=== PATIENT | female | born 1985 | race Caucasian/White ===

== ENCOUNTER 2017-12-23 11:32 | Emergency (ER) | payer MEDICAID, OTHER ==
--- NOTE | 2017-12-23 12:02 | UC ---
Throat Pain/Nasal Julius HPI - HPI Summary HPI Summary: 31 yo female presents with productive cough, wheezing, sore throat, hoarse voice , and severe right ear pain for the last 3 days, getting progressively worse. She has felt feverish, but has not taken her temperature. Has been taking ibuprofen with mild relief of her symptoms. Does feel SOB when she gets coughing a lot. Denies chest pain, abdominal pain, n/v/d/c. She is still smoking daily. - History of Current Complaint Hx Obtained From: Patient Onset/Duration: Gradual Onset Severity: Severe Pain Intensity: 8 Pain Scale Used: 0-10 Numeric Cough: Productive <Rodriguez Diaz - Last Filed: 12/23/17 13:58> <Waldemar Marcelino - Last Filed: 12/23/17 14:23> - History of Current Complaint Stated Complaint: SORE THROAT RIGHT EAR COMPLAINT Time Seen by Provider: 12/23/17 12:01 - Allergies/Home Medications Allergies/Adverse Reactions: Allergies Allergy/AdvReac Type Severity Reaction Status Date / Time No Known Allergies Allergy Verified 12/23/17 11:51 Home Medications: Home Medications Amitriptyline TAB* [Elavil TAB*] 10 mg PO BEDTIME 12/23/17 [History Confirmed ] Ibuprofen TAB* [Advil TAB*] 400 mg PO Q6H PRN 12/23/17 [History Confirmed ] Ondansetron TAB* [Zofran 4 MG Tab*] 4 mg PO Q6H PRN 12/23/17 [History Confirmed 12/23/17] Phenylephrine HCl [Eql Nasal [place] Fast Acti] 2 udc BOTH NARES BEDTIME 12/23/17 [History Confirmed 12/23/17] Phenylephrine/Dm/Acetaminop/GG [Tylenol Cold-Flu Severe Caplet] 2 each PO BID [History Confirmed 12/23/17] Sennosides [Laxative Pills Regular St] 15 mg PO DAILY 12/23/17 [History Confirmed 12/23/17] Sertraline* [Zoloft*] 50 mg PO BEDTIME 12/23/17 [History Confirmed 12/23/17] busPIRone TAB* [Buspar TAB*] 15 mg PO BID 12/23/17 [History Confirmed 12/23/17] PMH/Surg Hx/FS Hx/Imm Hx Psychological History: Anxiety, Depression - Family History Known Family History: Positive: None - Social History Occupation: Employed Full-time Lives: With Family Alcohol Use: Occasionally Substance Use Type: None Smoking Status (MU): Light Every Day Tobacco Smoker Type: Cigarettes <Rodriguez Diaz Filed: 12/23/17 13:58> Review of Systems Constitutional: Fever Skin: Negative Eyes: Negative ENT: Sore Throat, Ear Ache Respiratory: Cough Cardiovascular: Negative Gastrointestinal: Negative Motor: Negative Neurovascular: Negative Musculoskeletal: Negative Neurological: Negative Psychological: Negative All Other Systems Reviewed And Are Negative: Yes <Rodriguez Diaz Filed: 12/23/17 13:58> Physical Exam - Summary Physical Exam Summary: GENERAL: WDWN. Moderate pain distress about right ear SKIN: No rashes, sores, lesions, or open wounds. HEENT: Head: AT/NC Eyes: Conjunctiva clear without inflammation or discharge. Ears: Hearing grossly normal. RIGHT TM with moderate erythema and bulging. No canal edema or drainage. Nose: Nasal mucosa pink and moist. NTTP maxillary and frontal sinus. Throat: Posterior oropharynx with mild erythema. No exudates or tonsillar enlargement. Uvula midline. NECK: Supple. Nontender. No lymphadenopathy. CHEST: Moderate wheezing throughout. No r/r. No accessory muscle use. Breathing comfortably, but with excessive coughing. CV: RRR. Without m/r/g. Pulses intact. Brisk cap refill. NEURO: Alert. CN II-XII grossly intact. PSYCH: Age appropriate behavior. Triage Information Reviewed: Yes Vital Signs: Vital Signs: Temp Pulse Resp BP Pulse Ox 98.8 F 110 18 118/78 100 12/23/17 12:01 12/23/17 12:01 12/23/17 12:01 12/23/17 12:01 12/23/17 12:01 <Rodriguez Diaz Filed: 12/23/17 13:58> Vital Signs: Initial Vital Signs Temp 98.8 F 12/23/17 12:01 Pulse 110 12/23/17 12:01 Resp 18 12/23/17 12:01 BP 118/78 12/23/17 12:01 Pulse Ox 100 12/23/17 12:01 <Waldemar Marcelino - Last Filed: 12/23/17 14:23> Throat Pain/Nasal Course/Dx - Course Course Of Treatment: istop Reference #: [id number] ok. 800mg ibuprofen and duoneb given in clinic. Pt feeling slightly better after nebulizer tx and lungs with less wheezing. - Differential Dx/Diagnosis Provider Diagnoses: Right otitis media. Pharyngitis. Bronchitis <Rodriguez Diaz - Last Filed: 12/23/17 13:58> Discharge - Sign-Out/Discharge Documenting (check all that apply): Discharge/Admit/Transfer - Billing Disposition and Condition Condition: STABLE Disposition: Home <Rodriguez Diaz - Last Filed: 12/23/17 13:58> - Billing Disposition and Condition Condition: STABLE Disposition: Home <Waldemar Marcelino - Last Filed: 12/23/17 14:23> - Discharge Plan Condition: Stable Disposition: HOME Prescriptions: Albuterol HFA INHALER* [Ventolin HFA Inhaler*] 1 - 2 puff INH Q6H PRN #1 mdi PRN Reason: Wheezing Amoxicillin/Clavulanate TAB* [Augmentin TAB 875*] 875 mg PO BID #20 tab HYDROcodone/ACETAMIN 5-325 MG* [Ralph 5-325 TAB*] 1 tab PO BID PRN #6 tab MDD 2 PRN Reason: Pain predniSONE TAB* [Deltasone TAB*] 50 mg PO DAILY #5 tab Patient Education Materials: Ear Infection (ED), Acute Bronchitis (ED) Referrals: Non Staff,Doctor [Primary Care Provider] - Additional Instructions: If you develop a fever, shortness of breath, chest pain, new or worsening symptoms - please call your PCP or go to the ED. Per institutional requirements, I have reviewed the chart, however, I was not consulted specifically or made aware of this patient by the above midlevel provider. I did not personally evaluate, interact with , or disposition this patient.
[2017-12-23 12:06] VITALS: BP 118/78
[2017-12-23] MEDS ORDERED: Albuterol/Ipratropium NEB.SOL* Albuterol 2.5 MG/Ipratropium 0.5 MG 3 ML INH ONE (12:20)
[2017-12-23] MEDS ORDERED: Ibuprofen TAB* 400 MG PO ONE (12:20)
== END 2017-12-23 12:51 | disposition home or self-care (01) ==
LOC: UCCORT 11:32
DX: H66.91 Otitis media, unspecified, right ear (principal); J02.9 Acute pharyngitis, unspecified; J40 Bronchitis, not specified as acute or chronic; F41.8 Other specified anxiety disorders; F17.210 Nicotine dependence, cigarettes, uncomplicated
CPT/HCPCS: 99202; A9270-GY; G0463

== ENCOUNTER 2018-09-16 13:53 | Emergency (ER) | payer OTHER ==
[2018-09-16 14:27] VITALS: BP 124/72
[2018-09-16] MEDS ORDERED: Tetan/Diph/Pertus SYR(Tdap)* 0.5 ML SYR(BOOSTRIX) use SYR IM ONE (14:47)
--- NOTE | 2018-09-16 14:47 | UC ---
Skin Complaint HPI - HPI Summary HPI Summary: 32 yo female presents with two complaints 1) 3 days ago she found a stray cat under her porch and in the process of shooing it away - the cat scratched and bit her hands. These have been healing well. Pt did not notify health department and no longer has the cat. Unsure date of last tetanus 2) For the last 2 weeks pt has had a rash to her scalp and face. She tells me that she used a new shampoo around that time and thought her rash would go away , but it seems to have gotten worse. Very itchy. She has not applied any creams or taken anything OTC. Denies fever, chills, difficulty breathing, SOB, chest pain. - History of Current Complaint Chief Complaint: UCSkin Time Seen by Provider: 09/16/18 14:47 Stated Complaint: RASH CAT BITE/SCRATCH Hx Obtained From: Patient Hx Last Menstrual Period: approx 28 days ago. Onset/Duration: Sudden Onset Onset Severity: Moderate Current Severity: Moderate Pain Intensity: 5 Pain Scale Used: 0-10 Numeric - Allergy/Home Medications Allergies/Adverse Reactions: Allergies Allergy/AdvReac Type Severity Reaction Status Date / Time No Known Allergies Allergy Verified 09/16/18 14:27 PMH/Surg Hx/FS Hx/Imm Hx Psychological History: Anxiety, Depression - Surgical History Surgical History: Yes Surgery Procedure, Year, and Place: back sx - Family History Known Family History: Positive: None - Social History Lives: With Family Alcohol Use: Rare Substance Use Type: None Smoking Status (MU): Heavy Every Day Tobacco Smoker Type: Cigarettes Amount Used/How Often: 1/2 ppd Length of Time of Smoking/Using Tobacco: 15 yrs Have You Smoked in the Last Year: Yes Review of Systems All Other Systems Reviewed And Are Negative: Yes Constitutional: Positive: Negative Skin: Positive: Rash, Other - Cat bite and scratches to hands Respiratory: Positive: Negative Cardiovascular: Positive: Negative Neurovascular: Positive: Negative Neurological: Positive: Negative Psychological: Positive: Negative Physical Exam - Summary Physical Exam Summary: GENERAL: NAD. WDWN. No pain distress. SKIN: Scalp, face, and neck with contact dermatitis. B/L hands with scattered superficial scratches and four puncture wounds. No erythema, edema, warmth, or streaking. NTTP. NECK: Supple. Nontender. No lymphadenopathy. CHEST: No accessory muscle use. Breathing comfortably and in no distress. CV: Pulses intact. Cap refill <2seconds NEURO: Alert. PSYCH: Age appropriate behavior. Triage Information Reviewed: Yes Vital Signs: Initial Vital Signs Temp 98.1 F 09/16/18 14:23 Pulse 94 09/16/18 14:23 Resp 18 09/16/18 14:23 BP 124/72 09/16/18 14:23 Pulse Ox 100 09/16/18 14:23 Vital Signs Reviewed: Yes Course/Dx - Course Course Of Treatment: tdap updated today and will start her on Augmentin for cat bite. Strongly encouraged to f/u with the health department. Regarding her rash - I suspect this is contact dermatitis and will start her with prednisone and aquaphor to use on her face. - Diagnoses Provider Diagnosis: Cat bite, Contact dermatitis Discharge - Sign-Out/Discharge Documenting (check all that apply): Patient Departure All imaging exams completed and their final reports reviewed: No Studies - Discharge Plan Condition: Stable Disposition: HOME Prescriptions: Amoxicillin/Clavulanate TAB* [Augmentin TAB 875*] 875 mg PO BID #14 tab Petrolatum,White [Aquaphor] 1 applic TOPICAL BID #1 jar predniSONE TAB* [Deltasone 20 MG TAB*] 40 mg PO DAILY #10 tab Triamcinolone 0.1% CREAM (NF) [Kenalog 0.1% Cream (NF)] 1 applic TOPICAL BID #1 tube Patient Education Materials: Animal Bite (ED), Contact Dermatitis (ED) Referrals: No Primary Care Phys,NOPCP [Primary Care Provider] - Additional Instructions: If you develop a fever, shortness of breath, chest pain, new or worsening symptoms - please call your PCP or go to the ED. 1) Do not use the Kenalog cream on your face (Use the Aquaphor instead) - Billing Disposition and Condition Condition: STABLE Disposition: Home
== END 2018-09-16 15:16 | disposition home or self-care (01) ==
LOC: UCEAST 13:53
DX: S61.432A Puncture wound without foreign body of left hand, initial encounter (principal); S61.431A Puncture wound without foreign body of right hand, initial encounter; S60.512A Abrasion of left hand, initial encounter; S60.511A Abrasion of right hand, initial encounter; W55.01XA Bitten by cat, initial encounter; Y92.9 Unspecified place or not applicable; Z23 Encounter for immunization; L25.9 Unspecified contact dermatitis, unspecified cause; F17.210 Nicotine dependence, cigarettes, uncomplicated
CPT/HCPCS: 90471; 90715; 99211; G0463

== ENCOUNTER 2018-09-28 17:00 | Emergency (ER) | payer OTHER ==
[2018-09-28] MEDS ORDERED: NS 0.9% 1000 ML** 1,000 ML IV ONE ×2 (18:27→19:37)
[2018-09-28] MEDS ORDERED: Ondansetron INJ* 2 MG/ML VIAL IV ONE (18:31)
[2018-09-28] MEDS ORDERED: Ketorolac INJ* 30 MG/ML 1 ML VIAL IV PUSH ONE (18:31)
[2018-09-28 18:48] LABS: Hematocrit 36 % (33-41); Hemoglobin 11.7 g/dL (12.0-16.0); Mean Corpuscular HGB Conc 33 g/dL (31-36); Mean Corpuscular Hemoglobin 28 pg (27-31); Mean Corpuscular Volume 86 fL (80-97); Mean Platelet Volume 7.4 fL (7.4-10.4); Platelet Count 471 10^3/uL (150-450); Red Blood Count 4.14 10^6 /uL (3.70-4.87); Red Cell Distribution Width 15 % (10.5-15); White Blood Count 15.1 10^3/uL (3.5-10.8)
[2018-09-28 19:09] LABS: ALT 22 U/L (7-52); AST 21 U/L (13-39); Albumin 4.2 g/dL (3.2-5.2); Albumin/Globulin Ratio 1.4 (1-3); Alkaline Phosphatase 89 U/L (34-104); Anion Gap 5 mmol/L (2-11); BUN/Creatinine Ratio 3.2 (8-20); Blood Urea Nitrogen 3 mg/dL (6-24); C Reactive Protein 40.81 mg/L (<8.01); CO2 Carbon Dioxide 28 mmol/L (22-32); Calcium 9.2 mg/dL (8.6-10.3); Chloride 102 mmol/L (101-111); EGFR African American 83.5 (>60); Globulin 2.9 g/dL (2-4); Glucose 111 mg/dL (70-100); Potassium 3.6 mmol/L (3.5-5.0); Sodium 135 mmol/L (135-145); Total Protein 7.1 g/dL (6.4-8.9)
[2018-09-28 19:14] LABS: HCG Pregnancy < 0.60 mIU/mL; Lymphocytes % 18 %; Monocytes % 8 %; Neutrophil % 70 %
[2018-09-28 19:15] LABS: ABS Basophils 0 10^3/ul (0-0.2); ABS Eosinophils 0.7 10^3/ul (0-0.6); ABS Lymphocytes 2.6 10^3/ul (1.0-4.8); ABS Monocytes 1.3 10^3/ul (0-0.8); ABS Neutrophils 10.6 10^3/ul (1.5-7.7); ABS Nucleated RBC 0 10^3/ul; Nucleated Red Blood Cells % 0
[2018-09-28] MEDS ORDERED: Morphine INJ* 2 MG/ML 1 ML SYRINGE (TWO MG - NEW SYRINGE VERSION) IV ONE (19:52)
[2018-09-28 20:22] LABS: Urine Appearance Clear; Urine Bilirubin Negative (Negative); Urine Blood Negative (Negative); Urine Color Colorless; Urine Glucose Negative (Negative); Urine Ketones Negative (Negative); Urine Nitrite Negative (Negative); Urine Protein Negative (Negative); Urine Specific Gravity 1.001 (1.010-1.030); Urine Urobilinogen Negative (Negative)
[2018-09-28] MEDS ORDERED: Clindamycin 600 MG/D5W BAG(*) 600 MG/50 ML BAG IV ONE (20:35)
[2018-09-28] MEDS ORDERED: cefTRIAXone(*) 1 GM in NS 0.9% 50 ML* 50 ML IVPB ONE (20:37)
[2018-09-28] MEDS ORDERED: Morphine 4 MG/ML VIAL (1 ml) 4 MG/ML VIAL IV ONE ×2 (21:00→21:24)
[2018-09-28] MEDS ORDERED: Acetaminophen TAB* 325 MG PO ONE (21:25)
--- NOTE | 2018-09-28 21:35 | ED ---
Influenza-Like Illness - HPI Summary HPI Summary: 32-year-old female presents with cough and vomiting for the past couple days. She admits to occasional fevers. She admits to headache. she denies any neck stiffness. She admits to some dysuria urgency and frequency. She states feels like she has UTI. Has history of uti. She also has flank pain. She has been drinking a lot of water. She denies any chest pain or shortness of breath. She denies any IV drug use. Has no medical conditions. She has a rash for the past month. She states she was initially treated as a contact dermatitis with antibiotic and steroid with no improvement. She then was told has scabies and took the medication without improvement. She states the rash continues to spread. Rash is itchy sometimes. Has history of MRSA. States this seems similar to her MRSA rash. - History of Current Complaint Chief Complaint: EDFluSymptoms Time Seen by Provider: 09/28/18 18:03 - Allergy/Home Medications Allergies/Adverse Reactions: Allergies Allergy/AdvReac Type Severity Reaction Status Date / Time No Known Allergies Allergy Verified 09/28/18 17:13 PMH/Surg Hx/FS Hx/Imm Hx Endocrine/Hematology History: Denies: Hx Anticoagulant Therapy Respiratory History: Denies: Hx Asthma - Surgical History Surgery Procedure, Year, and Place: back sx Infectious Disease History: No Infectious Disease History: Denies: Traveled Outside the [place] in Last 30 Days - Family History Known Family History: Positive: None, Non-Contributory - Social History Alcohol Use: Rare Substance Use Type: Reports: None Smoking Status (MU): Heavy Every Day Tobacco Smoker Type: Cigarettes Amount Used/How Often: 1/2 ppd Length of Time of Smoking/Using Tobacco: 15 yrs Have You Smoked in the Last Year: Yes Review of Systems Positive: Fever, Chills Negative: Chest Pain Positive: Cough. Negative: Shortness Of Breath Positive: Vomiting, Nausea Positive: dysuria, flank pain, urgency All Other Systems Reviewed And Are Negative: Yes Physical Exam Triage Information Reviewed: Yes Vital Signs On Initial Exam: Initial Vitals Temp Pulse Resp BP Pulse Ox 98.6 F 93 22 152/98 100 09/28/18 17:10 09/28/18 17:10 09/28/18 17:10 09/28/18 17:10 09/28/18 17:10 Vital Signs Reviewed: Yes Appearance: Positive: Ill-Appearing Skin: Positive: Warm, Dry, Other - area of ulceration across body with some scabs present, no erythema surrouding them Head/Face: Positive: Normal Head/Face Inspection Eyes: Positive: Normal, EOMI, MIGUELITO, Conjunctiva Clear ENT: Positive: Normal ENT inspection, Pharynx normal, TMs normal Neck: Positive: Supple, Nontender, No Lymphadenopathy. Negative: Nuchal Rigidity Respiratory/Lung Sounds: Positive: Clear to Auscultation, Breath Sounds Present Cardiovascular: Positive: Normal, RRR Abdomen Description: Positive: Nontender, Soft, CVA Tenderness (R), CVA Tenderness (L) Bowel Sounds: Positive: Present Musculoskeletal: Positive: Normal Neurological: Positive: Normal Psychiatric: Positive: Normal Diagnostics - Vital Signs Vital Signs Temp Pulse Resp BP Pulse Ox 09/28/18 20:37 97 20 114/71 100 09/28/18 20:24 22 09/28/18 20:01 115 100 09/28/18 20:00 116 140/94 100 09/28/18 19:15 89 112/68 100 09/28/18 19:07 104 109/71 69 09/28/18 19:00 104 97 09/28/18 18:38 99 100 09/28/18 18:37 103 124/86 92 09/28/18 17:10 98.6 F 93 22 152/98 100 - Laboratory Lab Results: Lab Results 09/28/18 09/28/18 09/28/18 Range/Units 18:39 18:39 18:39 WBC 15.1 H (3.5-10.8) 10^3/uL RBC 4.14 (3.70-4.87) 10^6 /uL Hgb 11.7 L (12.0-16.0) g/dL Hct 36 (33-41) % MCV 86 (80-97) fL MCH 28 (27-31) pg MCHC 33 (31-36) g/dL RDW 15 (10.5-15) % Plt Count 471 H (150-450) 10^3/uL MPV 7.4 (7.4-10.4) fL Neut % (Auto) Not Reportable Lymph % (Auto) Not Reportable Garrard % (Auto) Not Reportable Eos % (Auto) Not Reportable Baso % (Auto) Not Reportable Absolute Neuts (auto) 10.6 H (1.5-7.7) 10^3/ul Absolute Lymphs (auto) 2.6 (1.0-4.8) 10^3/ul Absolute Monos (auto) 1.3 H (0-0.8) 10^3/ul Absolute Eos (auto) 0.7 H (0-0.6) 10^3/ul Absolute Basos (auto) 0 (0-0.2) 10^3/ul Absolute Nucleated RBC 0 10^3/ul Neutrophils % 70 % Lymphocytes % 18 % Monocytes % 8 % Eosinophils % 4 % Nucleated RBC % 0 Normal RBC Morphology Normal (Normal) Hem Pathologist Commnt Pending Sodium 135 (135-145) mmol/L Potassium 3.6 (3.5-5.0) mmol/L Chloride 102 (101-111) mmol/L Carbon Dioxide 28 (22-32) mmol/L Anion Gap 5 (2-11) mmol/L BUN 3 L (6-24) mg/dL Creatinine 0.94 (0.51-0.95) mg/dL Est GFR ( Amer) 83.5 (>60) Est GFR (Non-Af Amer) 69.0 (>60) BUN/Creatinine Ratio 3.2 L (8-20) Glucose 111 H (70-100) mg/dL Lactic Acid 1.6 (0.5-2.0) mmol/L Calcium 9.2 (8.6-10.3) mg/dL Total Bilirubin 0.30 (0.2-1.0) mg/dL AST 21 (13-39) U/L ALT 22 (7-52) U/L Alkaline Phosphatase 89 (34-104) U/L C-Reactive Protein 40.81 H (<8.01) mg/L Total Protein 7.1 (6.4-8.9) g/dL Albumin 4.2 (3.2-5.2) g/dL Globulin 2.9 (2-4) g/dL Albumin/Globulin Ratio 1.4 (1-3) Lipase < 10 L (11.0-82.0) U/L Beta HCG, Quant < 0.60 mIU/mL Urine Color Urine Appearance Urine pH (5-9) Ur Specific Pratt (1.010-1.030) Urine Protein (Negative) Urine Ketones (Negative) Urine Blood (Negative) Urine Nitrate (Negative) Urine Bilirubin (Negative) Urine Urobilinogen (Negative) Ur Leukocyte Esterase (Negative) Urine Glucose (Negative) Monoscreen Negative (Negative) 09/28/18 Range/Units 20:10 WBC (3.5-10.8) 10^3/uL RBC (3.70-4.87) 10^6 /uL Hgb (12.0-16.0) g/dL Hct (33-41) % MCV (80-97) fL MCH (27-31) pg MCHC (31-36) g/dL RDW (10.5-15) % Plt Count (150-450) 10^3/uL MPV (7.4-10.4) fL Neut % (Auto) Lymph % (Auto) Garrard % (Auto) Eos % (Auto) Baso % (Auto) Absolute Neuts (auto) (1.5-7.7) 10^3/ul Absolute Lymphs (auto) (1.0-4.8) 10^3/ul Absolute Monos (auto) (0-0.8) 10^3/ul Absolute Eos (auto) (0-0.6) 10^3/ul Absolute Basos (auto) (0-0.2) 10^3/ul Absolute Nucleated RBC 10^3/ul Neutrophils % % Lymphocytes % % Monocytes % % Eosinophils % % Nucleated RBC % Normal RBC Morphology (Normal) Hem Pathologist Commnt Sodium (135-145) mmol/L Potassium (3.5-5.0) mmol/L Chloride (101-111) mmol/L Carbon Dioxide (22-32) mmol/L Anion Gap (2-11) mmol/L BUN (6-24) mg/dL Creatinine (0.51-0.95) mg/dL Est GFR ( Amer) (>60) Est GFR (Non-Af Amer) (>60) BUN/Creatinine Ratio (8-20) Glucose (70-100) mg/dL Lactic Acid (0.5-2.0) mmol/L Calcium (8.6-10.3) mg/dL Total Bilirubin (0.2-1.0) mg/dL AST (13-39) U/L ALT (7-52) U/L Alkaline Phosphatase (34-104) U/L C-Reactive Protein (<8.01) mg/L Total Protein (6.4-8.9) g/dL Albumin (3.2-5.2) g/dL Globulin (2-4) g/dL Albumin/Globulin Ratio (1-3) Lipase (11.0-82.0) U/L Beta HCG, Quant mIU/mL Urine Color Colorless Urine Appearance Clear Urine pH 8.0 (5-9) Ur Specific Pratt 1.001 L (1.010-1.030) Urine Protein Negative (Negative) Urine Ketones Negative (Negative) Urine Blood Negative (Negative) Urine Nitrate Negative (Negative) Urine Bilirubin Negative (Negative) Urine Urobilinogen Negative (Negative) Ur Leukocyte Esterase Negative (Negative) Urine Glucose Negative (Negative) Monoscreen (Negative) Result Diagrams: 09/28/18 18:39 09/28/18 18:39 Lab Statement: Any lab studies that have been ordered have been reviewed, and results considered in the medical decision making process. - Radiology chest Radiology Interpretation Completed By: ED Physician Summary of Radiographic Findings: no pneumonia - Ultrasound No standard instances Ultrasound Interpretation Completed By: Radiologist Summary of Ultrasound Findings: IMPRESSION: No stones or obstructive uropathy. Mild fullness of the collecting systems bilaterally could be from reflux. Flu Symptom Course/Dx - Course Course Of Treatment: 32-year-old female presents with cough and vomiting for the past couple days. She admits to occasional fevers. She admits to headache. she denies any neck stiffness. She admits to some dysuria urgency and frequency. She states feels like she has UTI. Has history of uti. She also has flank pain. She has been drinking a lot of water. She denies any chest pain or shortness of breath. She denies any IV drug use. Has no medical conditions. She has a rash for the past month. She states she was initially treated as a contact dermatitis with antibiotic and steroid with no improvement. She then was told has scabies and took the medication without improvement. She states the rash continues to spread. Rash is itchy sometimes. Has history of MRSA. States this seems similar to her MRSA rash. On exam ulcerative type lesions across body. No evidence of cellulitis surrounding these wounds. Lungs clear to auscultation. Abdomen soft nontender. Tenderness over the flanks. Renal ultrasound shows possible reflux. Urine shows no infection. Patient did urinate in ED and had extreme pain though so give dose of Rocephin in case does have a UTI although urine is not showing such. white blood cell count elevated. CRP elevated. Lactic normal. Gave fluids and feeling better. Given a dose of clindamycin to cover for potential MRSA infection. Discussed will discharge on Bactrim as will also cover for UTI and for the potential MRSA infection. Told if symptoms are not improving or getting worse to return to ED. We'll have follow-up care connections. Patient understands agrees with plan. - Diagnoses Differential Diagnosis/HQI/PQRI: Positive: Influenza, Pneumonia, Upper Respiratory Infection Provider Diagnoses: Cough, Urinary frequency, Rash Discharge - Sign-Out/Discharge Documenting (check all that apply): Patient Departure Patient Received Moderate/Deep Sedation with Procedure: No - Discharge Plan Condition: Good Disposition: HOME Prescriptions: guaiFENesin/CODIEN 100MG-10MG* [Robitussin AC 100Mg-10Mg*] 5 ml PO Q6H PRN #100 udc MDD 20ml PRN Reason: Cough Ondansetron ODT TAB* [Zofran 4 MG Odt TAB*] 4 mg PO Q6H PRN #16 tab.odt PRN Reason: Nausea Phenazopyridine 200 mg (NF) [Pyridium 200 MG tab *] 200 mg PO TID PRN #5 tab PRN Reason: Pain Sulfamethox/Trimethoprim DS* [Bactrim DS 800/160 TAB*] 1 tab PO BID #20 tab Referrals: [facility] [Outside] Red Acuna MD [Medical Doctor] - Additional Instructions: take bactrim twice a day for 10 days Take pyridium three times a day with food for 2 days, first dose given in ED Drink plenty of fluids take zofran every 6 hours for nausea take 5ml robitussin every 6 hours as needed for cough Take tyenlol or ibuprofen every 6 hours as needed for fever or pain Follow up with care connection within 5 days follow up with dermatology Return to ED if develop any new or worsening symptoms - Billing Disposition and Condition Condition: GOOD Disposition: Home
[2018-09-28 21:58] LABS: Influenza A Molecular NEGATIVE (Negative); Influenza B Molecular NEGATIVE (Negative)
[2018-09-28] MEDS ORDERED: Phenazopyridine TAB* 100 MG PO ONE (22:13)
[2018-09-28 23:08] VITALS: BP 100/62
[2018-10-01 13:57] LABS: EBV Capsid Ag IgG Ab Positive (Negative); EBV Capsid Ag IgM Ab Negative (Negative); Epstein-Barr Nuclear Antigen Positive (Negative)
== END 2018-09-28 23:07 | disposition home or self-care (01) ==
LOC: ED 17:00
DX: R05 Cough (principal); R35.0 Frequency of micturition; R21 Rash and other nonspecific skin eruption; R50.9 Fever, unspecified; R51 Headache; R11.2 Nausea with vomiting, unspecified; R30.0 Dysuria; Z87.440 Personal history of urinary (tract) infections; Z86.14 Personal history of Methicillin resistant Staphylococcus aureus infection; F17.210 Nicotine dependence, cigarettes, uncomplicated
CPT/HCPCS: 36415; 71046; 76775; 80053; 81003; 83605; 83690; 84702; 85025; 85060; 86140; 86308; 86664; 86665; 87040; 87086; 96361; 96365; 96375; 96376; 99284; A9270-GY; J0696; J1885; J2270; J2405

== ENCOUNTER 2019-01-27 15:43 | Emergency (ER) | payer OTHER ==
--- NOTE | 2019-01-27 15:47 | UC ---
Hand/Wrist HPI - History Of Current Complaint Stated Complaint: WRIST COMPLAINT Time Seen by Provider: 01/27/19 15:47 Hx Last Menstrual Period: one month ago, states not - Allergies/Home Medications Allergies/Adverse Reactions: Allergies Allergy/AdvReac Type Severity Reaction Status Date / Time No Known Allergies Allergy Verified 09/28/18 17:13 PMH/Surg Hx/FS Hx/Imm Hx Psychological History: Anxiety, Depression, Bipolar Disorder Other History Of: Negative For: Anticoagulant Therapy - Surgical History Surgical History: Yes Surgery Procedure, Year, and Place: multiple laminectomies, three C-sections, appendectomy - Family History Known Family History: Positive: None, Unknown - is unsure about direct parents; she has no communication with them,, Renal Disease - grandfather was on dialysis , Non-Contributory - Social History Alcohol Use: Rare Substance Use Type: None Substance Use Comment - Amount & Last Used: denies Smoking Status (MU): Heavy Every Day Tobacco Smoker Type: Cigarettes Amount Used/How Often: 1/2 ppd Length of Time of Smoking/Using Tobacco: 15 yrs Have You Smoked in the Last Year: Yes Discharge - Discharge Plan Referrals: No Primary Care Phys,NOPCP [Primary Care Provider] -
[2019-01-27 16:19] VITALS: BP 150/73
--- NOTE | 2019-01-27 16:23 | UC ---
UC General HPI - HPI Summary HPI Summary: 33-year-old woman comes in with a chief complaint of right wrist weakness and numbness of the distal right arm. Reports this started about a week ago. Patient reports that in [place] on November 25, 2018 she had an MRI of her cervical spine and low back. She ended up with low back surgery on that date due to her right leg giving out on her. She's been having some intermittent numbness in the hands and was diagnosed with cervical radiculopathy. Patient reports about one week ago she developed some weakness of the right wrist where she cannot extend the wrist. She thought it would improve and it has not. She reports numbness in the dorsum of the right hand but also numbness into the right forearm. Is difficult for her to pronate. She prefers to use that she does have some overall weakness in the right arm compared to the left arm. - History of Current Complaint Stated Complaint: WRIST COMPLAINT Time Seen by Provider: 01/27/19 15:47 Hx Last Menstrual Period: one month ago, states not - Allergy/Home Medications Allergies/Adverse Reactions: Allergies Allergy/AdvReac Type Severity Reaction Status Date / Time No Known Allergies Allergy Verified 01/27/19 16:19 Home Medications: Home Medications ALPRAZolam TAB* [Xanax TAB*] 0.25 mg PO DAILY 01/27/19 [History Confirmed ] PMH/Surg Hx/FS Hx/Imm Hx Previously Healthy: Yes Other History Of: Negative For: Anticoagulant Therapy - Surgical History Surgical History: Yes Surgery Procedure, Year, and Place: multiple laminectomies, three C-sections, appendectomy - Family History Known Family History: Positive: None, Unknown - is unsure about direct parents; she has no communication with them,, Renal Disease - grandfather was on dialysis , Non-Contributory - Social History Alcohol Use: Rare Substance Use Type: None Substance Use Comment - Amount & Last Used: denies Smoking Status (MU): Heavy Every Day Tobacco Smoker Type: Cigarettes Amount Used/How Often: 1/2 ppd Length of Time of Smoking/Using Tobacco: 15 yrs Have You Smoked in the Last Year: Yes Review of Systems All Other Systems Reviewed And Are Negative: Yes Constitutional: Positive: Negative Skin: Positive: Negative Eyes: Positive: Negative ENT: Positive: Negative Respiratory: Positive: Negative Cardiovascular: Positive: Negative Gastrointestinal: Positive: Negative Genitourinary: Positive: Negative Motor: Positive: Other - SEE HPI Neurovascular: Positive: Other - SEE HPI Musculoskeletal: Positive: Other: - SEE HPI Neurological: Positive: Other - SEE HPI Psychological: Positive: Negative Is Patient Immunocompromised?: No Physical Exam Triage Information Reviewed: Yes Appearance: Well-Appearing, No Pain Distress, Well-Nourished Vital Signs Reviewed: Yes Eye Exam: Normal Eyes: Positive: Conjunctiva Clear Neck: Positive: Supple Respiratory: Positive: Lungs clear, Normal breath sounds, No respiratory distress Cardiovascular: Positive: RRR Musculoskeletal: Positive: Other: - Patient is unable to extend her right wrist. She is able to flex her right wrist. Patient is able to do pronation and supination although she reports it feels weak. She reports numbness in the right forearm. With elbow extension strength is 5 out of 5 bilaterally however the patient feels that the right elbow extension is not as strong as the left. Shoulders have full range of motion. Normal radial pulses normal capillary refill. Neurological: Positive: Alert Psychological: Positive: Age Appropriate Behavior Skin: Negative: Rashes Course/Dx - Course Course Of Treatment: I discussed the patient and her symptoms with her neck and back surgeon Dr Massey at [place]. He recommended a cock-up splint and for her to be seen in his office tomorrow. I discussed this with the patient she can call his office first thing in the morning for follow-up tomorrow. - Diagnoses Provider Diagnosis: Right wrist drop Discharge - Sign-Out/Discharge Documenting (check all that apply): Patient Departure All imaging exams completed and their final reports reviewed: No Studies - Discharge Plan Condition: Stable Disposition: HOME Patient Education Materials: Radial Nerve Palsy (ED) Referrals: Ben Massey MD [Medical Doctor] - Additional Instructions: FOLLOW UP WITH YOUR NECK AND BACK SURGEON, DR MASSEY, TOMORROW. CALL HIS OFFICE IN THE MORNING, FOR FOLLOW UP. GET RECHECKED SOONER IF YOUR CONDITION WORSENS OR ANY QUESTIONS OR CONCERNS. - Billing Disposition and Condition Condition: STABLE Disposition: Home
== END 2019-01-27 17:03 | disposition home or self-care (01) ==
LOC: UCEAST 15:43
DX: M21.331 Wrist drop, right wrist (principal); F17.210 Nicotine dependence, cigarettes, uncomplicated
CPT/HCPCS: 99213; G0463

== ENCOUNTER 2019-02-10 14:46 | Emergency (ER) | payer OTHER ==
[2019-02-10 15:06] VITALS: BP 118/80
[2019-02-10] MEDS ORDERED: hydrOXYzine HCL TAB* 25 MG PO ONE (15:15)
--- NOTE | 2019-02-10 15:19 | UC ---
Skin Complaint HPI - HPI Summary HPI Summary: 33 yo female with hx post traumatic stress disorder, anxiety presents with pruritic bug bites to back and neck as well as a few on her extr states she has always picked at bites bites present x days hx of MRSA - History of Current Complaint Chief Complaint: UCSkin Time Seen by Provider: 02/10/19 14:59 Stated Complaint: BUG BITES Hx Obtained From: Patient Hx Last Menstrual Period: 02/08/19 Onset/Duration: Gradual Onset, Lasting Days Timing: Constant Onset Severity: Mild Current Severity: Moderate Pain Intensity: 3 Pain Scale Used: 0-10 Numeric Location: Other - see HPI Character: Pruritus, Raised Aggravating Factor(s): Touch Alleviating Factor(s): Nothing Associated Signs & Symptoms: Negative: Nausea, Vomiting, Numbness, Thirst, Diaphoresis, Weakness, Pallor, Shivering, Difficulty Breathing, Fever, Chills, Cough, Wheezing, Chest Pain, Hoarseness, Throat Tightening, Rash, Abdominal Pain , Lightheadedness, Syncope, Drainage, Bruising, Tenderness, Red Streaks, Joint Swelling - Allergy/Home Medications Allergies/Adverse Reactions: Allergies Allergy/AdvReac Type Severity Reaction Status Date / Time No Known Allergies Allergy Verified 02/10/19 15:06 Home Medications: Home Medications Loratadine 10 mg PO DAILY 02/10/19 [History Confirmed 02/10/19] busPIRone TAB* [Buspar TAB*] 10 mg PO DAILY 02/10/19 [History Confirmed 02/10/19 ] PMH/Surg Hx/FS Hx/Imm Hx Previously Healthy: Yes Psychological History: Anxiety, Post Traumatic Stress Disorder Other History Of: Negative For: Anticoagulant Therapy - Surgical History Surgical History: Yes Surgery Procedure, Year, and Place: multiple laminectomies, three C-sections, appendectomy - Family History Known Family History: Positive: None, Unknown - is unsure about direct parents; she has no communication with them,, Renal Disease - grandfather was on dialysis , Non-Contributory - Social History Alcohol Use: Rare Substance Use Type: None Substance Use Comment - Amount & Last Used: denies Smoking Status (MU): Heavy Every Day Tobacco Smoker Type: Cigarettes Amount Used/How Often: 1/2 ppd Length of Time of Smoking/Using Tobacco: 15 yrs Have You Smoked in the Last Year: Yes Review of Systems All Other Systems Reviewed And Are Negative: Yes Constitutional: Positive: Negative Skin: Positive: Other - insect bites Eyes: Positive: Negative ENT: Positive: Negative Respiratory: Positive: Negative Cardiovascular: Positive: Negative Gastrointestinal: Positive: Negative Genitourinary: Positive: Negative Motor: Positive: Negative Neurovascular: Positive: Negative Musculoskeletal: Positive: Negative Neurological: Positive: Negative Psychological: Positive: Anxious - chroniclly Physical Exam Triage Information Reviewed: Yes Appearance: Well-Appearing, No Pain Distress, Well-Nourished Vital Signs: Initial Vital Signs Temp 98.1 F 02/10/19 14:58 Pulse 84 02/10/19 14:58 Resp 16 02/10/19 14:58 BP 118/80 02/10/19 14:58 Pulse Ox 99 02/10/19 14:58 Vital Signs Reviewed: Yes Eyes: Positive: Conjunctiva Clear ENT: Positive: Hearing grossly normal, Uvula midline. Negative: Nasal congestion, Nasal drainage, Tonsillar exudate, Trismus, Hoarse voice Dental Exam: Normal Neck: Positive: Supple, Nontender, No Lymphadenopathy Respiratory: Positive: Lungs clear, Normal breath sounds, No respiratory distress, No accessory muscle use Cardiovascular: Positive: RRR, No Murmur Bowel Sounds: Positive: Present Musculoskeletal: Positive: ROM Intact, No Edema Neurological: Positive: Alert Psychological Exam: Normal Skin Exam: Other - multiple excoriated bites..none appera infected. Course/Dx - Diagnoses Provider Diagnosis: Insect bites Discharge - Sign-Out/Discharge Documenting (check all that apply): Patient Departure All imaging exams completed and their final reports reviewed: No Studies - Discharge Plan Condition: Stable Disposition: HOME Prescriptions: hydrOXYzine HCL TAB* [Atarax TAB*] 25 - 50 mg PO QID PRN #20 tab PRN Reason: Itching Mupirocin 2% OINT* [Bactroban 2 % Oint*] 1 applic TOPICAL TID #1 tube Patient Education Materials: Insect Bite or Sting (ED) Referrals: [facility] [Outside] - As Soon As Possible Additional Instructions: recheck for new or worsening symptoms - Billing Disposition and Condition Condition: STABLE Disposition: Home
== END 2019-02-10 15:29 | disposition home or self-care (01) ==
LOC: UCEAST 14:46
DX: S10.96XA Insect bite of unspecified part of neck, initial encounter (principal); S20.469A Insect bite (nonvenomous) of unspecified back wall of thorax, initial encounter; W57.XXXA Bitten or stung by nonvenomous insect and other nonvenomous arthropods, initial encounter; Y92.9 Unspecified place or not applicable; F41.9 Anxiety disorder, unspecified; Z86.14 Personal history of Methicillin resistant Staphylococcus aureus infection; F17.210 Nicotine dependence, cigarettes, uncomplicated
CPT/HCPCS: 99212; A9270-GY; G0463

== ENCOUNTER 2019-05-21 15:14 | Inpatient (IN) | payer OTHER ==
[2019-05-21 16:07] LABS: Urine Appearance Cloudy; Urine Bacteria 1+ (Absent); Urine Bilirubin Negative (Negative); Urine Blood Negative (Negative); Urine Color Amber; Urine Glucose Negative (Negative); Urine Ketones Negative (Negative); Urine Nitrite Positive (Negative); Urine Protein Negative (Negative); Urine Red Blood Cell 2+(6-10/hpf) (Absent); Urine Specific Gravity 1.016 (1.010-1.030); Urine Squamous Epithelial Cell Present (Absent); Urine Urobilinogen Negative (Negative); Urine White Blood Cell 2+(11-20/hpf) (Absent)
[2019-05-21] MEDS ORDERED: Ondansetron INJ* 2 MG/ML VIAL IV ONE (18:37)
[2019-05-21] MEDS ORDERED: Lactated Ringers 1000 ML Bag* 1,000 ML IV ONE (18:37)
[2019-05-21] MEDS ORDERED: Famotidine IV* 10 MG/ML 2 ML (20 mg) IV SLOW PU ONE (18:37)
--- NOTE | 2019-05-21 18:48 | ED ---
Abdominal Pain/Female - HPI Summary HPI Summary: 33 year old F presenting to [facility] accompanied by male hospitality services manager complains of worsening abdominal pain rated 8/10 in severity x3 weeks, intermittent nausea/ vomiting x1 year, dysuria and back pain x1 month, and fever for several days. No diarrhea. Patient denies chills, erythema of eyes, sore throat, chest pain, shortness of breath, cough, hematuria, myalgia, edema, rash, or dizziness. Symptoms aggravated by nothing. Symptoms alleviated by nothing. Patient recently had ultrasound done which showed that her gallbladder was "sluggish" and was admitted to [facility] in [place], d/c 1 week ago. States she called her doctors at [place] today and was referred to ED. Advised by her doctors to have HIDA scan before potential cholecystectomy. States she recently stopped taking many of her medications. Hx kidney stones, hx kidney disease, hx kidney reflex. - History of Current Complaint Chief Complaint: EDAbdPain Stated Complaint: ABD PAIN / FEVER / NAUSEA PER PT Time Seen by Provider: 05/21/19 18:39 Hx Obtained From: Patient Onset/Duration: Lasting Weeks, Still Present Timing: Intermittent Episode Lasting Severity Currently: Severe Pain Intensity: 8 Pain Scale Used: 0-10 Numeric Aggravating Factor(s): Nothing Alleviating Factor(s): Nothing Associated Signs and Symptoms: Positive: Negative - chills, erythema of eyes, sore throat, chest pain, shortness of breath, cough, diarrhea, hematuria, myalgia, edema, rash, or dizziness Allergies/Adverse Reactions: Allergies Allergy/AdvReac Type Severity Reaction Status Date / Time No Known Allergies Allergy Verified 05/21/19 15:40 Home Medications: Home Medications Amitriptyline TAB* [Elavil TAB*] 25 mg PO QPM 05/21/19 [History Confirmed ] Famotidine TAB* [Pepcid 20 MG TAB*] 20 mg PO QPM PRN 05/21/19 [History Confirmed 05/21/19] Fluticasone NASAL SPRAY 50MCG* [Flonase NASAL SPRAY 50MCG*] 2 spray BOTH NARES DAILY 05/21/19 [History Confirmed 05/21/19] Gabapentin TAB(NF) [Neurontin 600 mg TAB(NF)] 600 mg PO TID 05/21/19 [History Confirmed 05/21/19] Magnesium Hydroxide LIQ* [Milk of Magnesia LIQ*] 30 ml PO Q6H PRN 05/21/19 [ History Confirmed 05/21/19] tiZANidine TAB* [Zanaflex TAB*] 2 mg PO Q8HR 05/21/19 [History Confirmed ] PMH/Surg Hx/FS Hx/Imm Hx Endocrine/Hematology History: Denies: Hx Anticoagulant Therapy Respiratory History: Denies: Hx Asthma History: Reports: Hx Acute Renal Failure - during first , Hx Kidney Stones, Hx Renal Disease, Other Problems/Disorders - urinary reflux since age 7, has not seen urology for a few years - Surgical History Surgery Procedure, Year, and Place: multiple laminectomies, three C-sections, appendectomy Infectious Disease History: Yes Infectious Disease History: Reports: Hx of Known/Suspected MRSA Denies: Traveled Outside the [place] in Last 30 Days - Family History Known Family History: Positive: Renal Disease - grandfather was on dialysis - Social History Alcohol Use: Rare Hx Substance Use: No Substance Use Type: Reports: None Substance Use Comment - Amount & Last Used: denies Hx Tobacco Use: Yes Smoking Status (MU): Heavy Every Day Tobacco Smoker Type: Cigarettes Amount Used/How Often: 1/2 ppd Length of Time of Smoking/Using Tobacco: 15 yrs Have You Smoked in the Last Year: Yes Review of Systems Positive: Fever. Negative: Chills Negative: Erythema Negative: Sore Throat Negative: Chest Pain Negative: Shortness Of Breath, Cough Positive: Abdominal Pain, Vomiting, Nausea. Negative: Diarrhea Positive: dysuria, discharge - back pain. Negative: hematuria Positive: Other. Negative: Myalgia, Edema Negative: Rash Neurological: Negative - Dizziness All Other Systems Reviewed And Are Negative: Yes Physical Exam - Summary Physical Exam Summary: Constitutional: Well-developed, Well-nourished, Alert. (-) Distressed Skin: Warm, Dry HENT: Normocephalic; Atraumatic Eyes: Conjunctiva normal Neck: Musculoskeletal ROM normal neck. (-) JVD, (-) Stridor, (-) Tracheal deviation Cardio: Rhythm regular, rate normal, Heart sounds normal; Intact distal pulses; The pedal pulses are 2+ and symmetric. Radial pulses are 2+ and symmetric. (-) Murmur Pulmonary/Chest wall: Effort normal. (-) Respiratory distress, (-) Wheezes, (-) Rales Abd: Soft, epigastric, RUQ, right CVA tenderness, (-) Distension, (-) Guarding, (-) Rebound Musculoskeletal: (-) Edema Lymph: (-) Cervical adenopathy Neuro: Alert, Oriented x3 Psych: Mood and affect Normal Triage Information Reviewed: Yes Vital Signs On Initial Exam: Initial Vitals Temp Pulse Resp BP Pulse Ox 98.4 F 103 20 121/78 98 05/21/19 15:37 05/21/19 15:37 05/21/19 15:37 05/21/19 15:37 05/21/19 15:37 Vital Signs Reviewed: Yes Procedures - Procedure Summary Procedure Summary: Attempted ultrasound guided IV of the left antecubital space. Compressible non- pulsifiable vessel was identified, however cannula did not thread. - Sedation Patient Received Moderate/Deep Sedation with Procedure: No Diagnostics - Vital Signs Vital Signs Temp Pulse Resp BP Pulse Ox 05/21/19 16:59 98.8 F 103 18 108/68 97 05/21/19 15:37 98.4 F 103 20 121/78 98 - Laboratory Lab Results: Lab Results 05/21/19 Range/Units 15:52 Urine Color Shani Urine Appearance Cloudy Urine pH 7.0 (5-9) Ur Specific [place] 1.016 (1.010-1.030) Urine Protein Negative (Negative) Urine Ketones Negative (Negative) Urine Blood Negative (Negative) Urine Nitrate Positive A (Negative) Urine Bilirubin Negative (Negative) Urine Urobilinogen Negative (Negative) Ur Leukocyte Esterase 1+ A (Negative) Urine WBC (Auto) 2+(11-20/hpf) A (Absent) Urine RBC (Auto) 2+(6-10/hpf) A (Absent) Ur Squamous Epith Cells Present A (Absent) Urine Bacteria 1+ A (Absent) Urine Glucose Negative (Negative) Result Diagrams: 05/21/19 19:52 05/21/19 19:52 Lab Statement: Any lab studies that have been ordered have been reviewed, and results considered in the medical decision making process. - CT Abd/Pel CT Interpretation Completed By: Radiologist Summary of CT Findings: 1. Possible right pyelonephritis. No additional findings to correlate with patient's symptomatology. 2. Hepatomegaly. ED physician has reviewed this report. - Ultrasound Gallbladder Ultrasound Interpretation Completed By: Radiologist Summary of Ultrasound Findings: Mild hydronephrosis with no right ureteral jet suggesting a obstructing ureteral calculus which can be confirmed with a CT KUB. ED physician has reviewed this report. Re-Evaluation - Re-Evaluation First Eval Re-Evaluation Time: 21:15 Change: Unchanged Comment: per nurses, 4 nurses have attempted IV access without success Abdominal Pain Fem Course/Dx - Course Course Of Treatment: 33 year old F complains of worsening abdominal pain x3 weeks, intermittent nausea/vomiting x1 year, dysuria and back pain x1 month, and fever for several days. Recently d/c from [facility] in [place] 1 week ago. States she was advised to have HIDA scan before potential cholecystectomy. Physical exam findings: epigastric, RUQ, right CVA tenderness. Bloodwork results with no significant abnormalities except for WBC 19.8, platelet count 512, absolute neuts 16.4, absolute monos 1.7, sodium 134, chloride 98, creatinine 1.03, glucose 108, alkaline phosphatase 133, lipase <10. Urinalysis results with no significant abnormalities except for nitrate, leukocyte esterase 1+, WBC 2+, RBC 2+, squamous epithelial cells, bacteria 1+. CT Abd/ Pel shows, per radiologist: 1. Possible right pyelonephritis. No additional findings to correlate with patient's symptomatology. 2. Hepatomegaly. US Gallbladder shows, per radiologist: Mild hydronephrosis with no right ureteral jet suggesting a obstructing ureteral calculus which can be confirmed with a CT KUB. In the ED course, the patient was given acetaminophen 650 mg PO, famotidine 20 mg IV, lactated ringers, morphine 4 mg IV, ondanestron 4 mg IV. Patient was given more morphine 4 mg IV and Zofran 4 mg IV. Ultrasound guided IV established. Sepsis intervention including fluids and antibiotics were delayed d/t poor vascular access. Patient was started on Zosyn. Dr. Cage, urology, states that with no hydro and no kidney stones on CT, he recommends admission to hospitalist. 21:58 Dr. Velazquez, hospitalist, agrees to admit. - Diagnoses Provider Diagnoses: Sepsis, Pyelonephritis - Provider Notifications Discussed Care Of Patient With: Francois Cage Time Discussed With Above Provider: 21:55 Instructed by Provider To: Other - Dr. Cage, urology, states that with no hydro and no kidney stones on CT, he recommends admission to hospitalist. 21:58 Dr. Velazquez, hospitalist, agrees to admit. Discharge ED - Sign-Out/Discharge Documenting (check all that apply): Patient Departure - Admit - Discharge Plan Condition: Stable Disposition: ADMITTED TO [facility] Referrals: No Primary Care Phys,NOPCP [Primary Care Provider] - - Attestation Statements Document Initiated by Scribe: Yes Documenting Scribe: Elly Williamson Provider For Whom Scribe is Documenting (Include Credential): Nixon Kenyon MD Scribe Attestation: I, Elly Williamson, scribed for Nixon Kenyon MD on 05/21/19 at 2203. Status of Scribe Document: Ready
[2019-05-21] MEDS ORDERED: Acetaminophen TAB* 325 MG PO ONE (18:49)
[2019-05-21] MEDS ORDERED: Morphine INJ* 4 MG/ML 1 ML SYRINGE (NEW SYRINGE VERSION) IV ONE (18:49)
[2019-05-21 20:06] LABS: Hematocrit 40 % (35-47); Hemoglobin 13.2 g/dL (12.0-16.0); Mean Corpuscular HGB Conc 33 g/dL (31-36); Mean Corpuscular Hemoglobin 28 pg (27-31); Mean Corpuscular Volume 86 fL (80-97); Mean Platelet Volume 7.5 fL (7.4-10.4); Platelet Count 512 10^3/uL (150-450); Red Blood Count 4.67 10^6 /uL (3.70-4.87); Red Cell Distribution Width 15 % (10-15); White Blood Count 19.8 10^3/uL (3.5-10.8)
[2019-05-21 20:16] LABS: ALT 31 U/L (7-52); AST 34 U/L (13-39); Albumin 4.8 g/dL (3.2-5.2); Albumin/Globulin Ratio 1.3 (1-3); Alkaline Phosphatase 133 U/L (34-104); Anion Gap 7 mmol/L (2-11); BUN/Creatinine Ratio 8.7 (8-20); Blood Urea Nitrogen 9 mg/dL (6-24); CO2 Carbon Dioxide 29 mmol/L (22-32); Calcium 9.9 mg/dL (8.6-10.3); Chloride 98 mmol/L (101-111); EGFR African American 74.7 (>60); EGFR Non-African American 61.7 (>60); Globulin 3.6 g/dL (2-4); Glucose 108 mg/dL (70-100); Indirect Bilirubin 0.3 mg/dL (0.3-1.0); Potassium 4.2 mmol/L (3.5-5.0); Sodium 134 mmol/L (135-145); Total Protein 8.4 g/dL (6.4-8.9)
[2019-05-21 20:17] LABS: ABS Basophils 0.2 10^3/ul (0-0.2); ABS Eosinophils 0.1 10^3/ul (0-0.6); ABS Lymphocytes 1.5 10^3/ul (1.0-4.8); ABS Monocytes 1.7 10^3/ul (0-0.8); ABS Neutrophils 16.4 10^3/ul (1.5-7.7); Eosinophil % 0.3 %; Lymphocyte % 7.7 %
[2019-05-21 20:22] LABS: HCG Pregnancy 0.72 mIU/mL
[2019-05-21] MEDS ORDERED: Ondansetron ODT TAB* 4 MG ONE (21:25)
[2019-05-21] MEDS ORDERED: Ondansetron ODT TAB* 4 MG PO ONE (21:25)
[2019-05-21] MEDS ORDERED: NS 0.9% 1000 ML** 1,000 ML IV.FLUID IV ONE (21:51)
[2019-05-21] MEDS ORDERED: Piperacillin/Tazobac ADVAN(*) 3.375 GM in NS 0.9% 100 ML* 100 ML IVPB ONE (21:51)
[2019-05-21] MEDS ORDERED: Morphine 4 MG/ML VIAL (1 ml) 4 MG/ML VIAL IV ONE ×2 (22:00→22:19)
[2019-05-21] MEDS ORDERED: Zosyn per Pharmacy* NOTE FOLLOW UP SCH (23:00)
[2019-05-22] MEDS: NS 0.9% 1000 ML** 1,000 ML IV SCH ×2 (00:01→10:45)
[2019-05-22] MEDS: ZOSYN 3.375 GM Q8H per EXTENDED INFUSION IVPB SCH ×6 (01:51→19:14)
[2019-05-22] MEDS ORDERED: Piperacillin/Tazobac ADVAN(*) 3.375 GM in NS 0.9% 100 ML* 100 ML IVPB ONE (04:00)
[2019-05-22] MEDS ORDERED: Morphine INJ* 4 MG/ML 1 ML SYRINGE (NEW SYRINGE VERSION) IV ONE ×2 (05:41→22:13)
--- NOTE | 2019-05-22 05:42 | HP ---
History of Present Illness - History of Present Illness Reason for Visit: fever, abdominal pain History of Present Illness: 33 year old female with history of kidney reflux came to the hospital today with complaints of fever with nausea/vomiting. Her nausea/vomiting started 2 weeks ago. She was already seen in [place] at [facility] and was told to have gallbladder issues. In fact, she said she was scheduled to come in tomorrow for more testing. She has not been having much appetite all week. The fever started today. She came to the ER after she spoke with her PCP. Her UA is pos and CT abdomen showed possible pyelonephritis. She has hx of recurrent UTIs in the setting of ?reflux disease ( no records to review) and she said she gets frequent UTIs. - Past Medical History Psych: Anxiety Renal/: UTI Review of Systems - Measurements Intake and Output: Intake and Output Last 24 Hours 05/19/19 05/20/19 05/21/19 05/22/19 06:59 06:59 06:59 06:59 Weight 178 lb - Review of Systems Constitutional Symptoms: Positive: Weakness, Fatigue, Fever, Night Sweats Dermatology: Negative: Normal, Rash, Skin Lesions, Cancer, Skin Lumps, Other HEENT: Negative: Normal, Change in Hearing, Vertigo, Dental Problems, Tinnitus, Sinus Problem, Other Eyes: Negative: Normal, Change in Vision, Double Vision, Eye Pain, Glaucoma, Cataract, Contacts or Glasses, Other Thyroid: Negative: Normal, Goiter, Thyroid Nodule, Cold Intolerance, Heat Intolerance , Sweatiness, Tremor, Frequent Defecation, Constipation, Palpitations, Primary Hypothyroidism, Primary Hyperthyroidism, Weight Loss, Weight Gain, Change in Skin/Hair, Change in Menstruation, Radiation Exposure, Other Cardiology: Negative: Normal, Chest Pain, Shortness of Breath, Palpitations, Swelling of Ankles, Peripheral Vascular Dis, Edema, Faintness, Syncope, Claudication, Proximal NocturnalDyspnea, Orthopnoea, Other Gastroenterology: Positive: Abdominal Pain, Nausea, Vomiting Genital - Urinary: Positive: Dysuria Endocrinology: Negative: Normal, Thyroid Problems, Adrenal Problems, Gonadal Problems, Family Hx Endocrine Disorders, Obesity, Diabetes Mellitus, Hyperglycemia, Hx Hypoglycemia, Diabetic Foot Ulcers, Calluses, Hirsutism, Menstrual Abnormalities , Polydipsia, Polyuria, Gonadal Problems, Gynecomastia, Pituitary disease, Other Neurology: Negative: Normal, Headache, Migraines, Change in Vision, Diplopia, Dizziness , Change in Balancing, Change in Coordination, Change in Memory, Change in Speech, Change in Sphincter Function, Change in Walking, Numbness\Paresthesiae, Unexplained Weakness, Hx of Stroke\TIA, Hx of Seizures, Other Objective Active Medications: Heparin Sodium (Porcine) (Heparin Vial(*)) 5,000 units SUBCUT Q8HR [facility] Sodium Chloride (Ns 0.9% 1000 Ml) 1,000 mls @ 125 mls/hr IV Q8H [facility] Last Admin: 05/22/19 00:01 Dose: 125 mls/hr Piperacillin Sod/Tazobactam (Sod 3.375 gm/ Sodium Chloride) 100 mls @ 25 mls/ hr IVPB Q8H [facility] Last Admin: 05/22/19 01:51 Dose: 25 mls/hr Pharmacy Consult (Zosyn Per Pharmacy*) 1 note FOLLOW UP .ZOSYN PER PHARMACY [facility] Vital Signs - 8 hr 05/21/19 05/21/19 05/21/19 21:54 21:55 22:00 Temperature Pulse Rate 114 111 117 Respiratory 16 Rate Blood Pressure 101/59 (mmHg) O2 Sat by Pulse 92 93 97 Oximetry 05/21/19 05/21/19 05/21/19 22:09 22:23 22:38 Temperature Pulse Rate 193 100 Respiratory 23 24 21 Rate Blood Pressure 102/53 110/56 (mmHg) O2 Sat by Pulse 87 92 Oximetry 05/21/19 05/21/19 05/21/19 22:53 23:00 23:04 Temperature 98.8 F Pulse Rate 99 97 99 Respiratory 21 20 20 Rate Blood Pressure 103/63 110/51 (mmHg) O2 Sat by Pulse 96 95 97 Oximetry 05/21/19 05/21/19 05/21/19 23:08 23:23 23:49 Temperature 99.9 F Pulse Rate 98 98 98 Respiratory 19 24 26 Rate Blood Pressure 106/56 110/55 110/55 (mmHg) O2 Sat by Pulse 94 95 94 Oximetry 05/21/19 05/22/19 23:53 03:23 Temperature 98.8 F 98.6 F Pulse Rate 99 102 Respiratory 18 18 Rate Blood Pressure 110/51 111/60 (mmHg) O2 Sat by Pulse 97 97 Oximetry Oxygen Devices in Use Now: None Appearance: she looks uncomfortable, sickly Eyes: No Scleral Icterus, PERRLA Ears/Nose/Mouth/Throat: NL Teeth, Lips, Gums, Mucous Membranes Moist Neck: NL Appearance and Movements; NL JVP Respiratory: Symmetrical Chest Expansion and Respiratory Effort, Clear to Auscultation, Clear to Percussion Cardiovascular: NL Sounds; No Murmurs; No JVD, No Edema Abdominal: - - epigatric tenderness Skin: No Rash or Ulcers Neurological: Alert and Oriented x 3 Result Diagrams: 05/21/19 19:52 05/21/19 19:52 Additional Lab and Data: Lab Results 05/21/19 Range/Units 15:52 Urine Color Shani Urine Appearance Cloudy Urine pH 7.0 (5-9) Ur Specific [place] 1.016 (1.010-1.030) Urine Protein Negative (Negative) Urine Ketones Negative (Negative) Urine Blood Negative (Negative) Urine Nitrate Positive A (Negative) Urine Bilirubin Negative (Negative) Urine Urobilinogen Negative (Negative) Ur Leukocyte Esterase 1+ A (Negative) Urine WBC (Auto) 2+(11-20/hpf) A (Absent) Urine RBC (Auto) 2+(6-10/hpf) A (Absent) Ur Squamous Epith Cells Present A (Absent) Urine Bacteria 1+ A (Absent) Urine Glucose Negative (Negative) Assess/Plan/Problems-Billing Assessment: - Patient Problems (1) Pyelonephritis Current Visit: Yes Status: Acute Code(s): N12 - TUBULO-INTERSTITIAL NEPHRITIS, NOT SPCF ACUTE OR CHRONIC SNOMED Code(s): 93111315 Comment: sepsis workup. Received adequate fluid rescucitation, blood cultures sent, urine cultures sent. On ReferralMD for coverage (2) Full code status Current Visit: Yes Status: Acute Code(s): Z78.9 - OTHER SPECIFIED HEALTH STATUS SNOMED Code(s): 427537741 (3) DVT prophylaxis Current Visit: Yes Status: Acute Code(s): Z29.9 - ENCOUNTER FOR PROPHYLACTIC MEASURES, UNSPECIFIED SNOMED Code(s): 920272305
[2019-05-22 05:45] LABS: Hematocrit 33 % (35-47); Hemoglobin 10.9 g/dL (12.0-16.0); Mean Corpuscular HGB Conc 33 g/dL (31-36); Mean Corpuscular Hemoglobin 28 pg (27-31); Mean Corpuscular Volume 85 fL (80-97); Mean Platelet Volume 7.5 fL (7.4-10.4); Platelet Count 405 10^3/uL (150-450); Red Blood Count 3.84 10^6 /uL (3.70-4.87); Red Cell Distribution Width 15 % (10-15); White Blood Count 15.6 10^3/uL (3.5-10.8)
[2019-05-22 05:52] LABS: ABS Basophils 0.1 10^3/ul (0-0.2); ABS Lymphocytes 1.7 10^3/ul (1.0-4.8); ABS Monocytes 2.2 10^3/ul (0-0.8); ABS Neutrophils 11.7 10^3/ul (1.5-7.7); Eosinophil % 0.3 %; Lymphocyte % 10.6 %; Nucleated Red Blood Cells % 0.1
[2019-05-22] MEDS: Heparin VIAL(*) 5000 UNITS/ML VIAL (FIVE THOUSAND) SUBCUT SCH ×3 (05:55→21:55)
[2019-05-22] MEDS ORDERED: Acetaminophen TAB* 325 MG PO PRN (05:56)
[2019-05-22 06:02] LABS: BUN/Creatinine Ratio 10.2 (8-20); Calcium 8.2 mg/dL (8.6-10.3); EGFR African American 89.5 (>60); Potassium 4.1 mmol/L (3.5-5.0)
--- NOTE | 2019-05-22 07:31 | PN ---
Subjective Date of Service: 05/22/19 Interval History: HD 2 on 05/22 33 y/o F with ?vesiculoureteral reflux with recurrent UTI and anxiety presented with subacute nausea/vomitng associated with acute fever. FOund to be in sepsis( fever, tachy, leucocytosis) 2/2 pyelonephritis. On zosyn Overnight- No acute events VS stable; tachy Has subjective fever, and chills and feels tired. Denies abdominal pain at present. Objective Active Medications: Acetaminophen (Tylenol Tab*) 650 mg PO Q6H PRN PRN Reason: PAIN - MILD Last Admin: 05/22/19 06:21 Dose: 650 mg Heparin Sodium (Porcine) (Heparin Vial(*)) 5,000 units SUBCUT Q8HR [facility] Last Admin: 05/22/19 05:55 Dose: Not Given Sodium Chloride (Ns 0.9% 1000 Ml) 1,000 mls @ 125 mls/hr IV Q8H [facility] Last Admin: 05/22/19 00:01 Dose: 125 mls/hr Piperacillin Sod/Tazobactam (Sod 3.375 gm/ Sodium Chloride) 100 mls @ 25 mls/ hr IVPB Q8H [facility] Last Admin: 05/22/19 01:51 Dose: 25 mls/hr Pharmacy Consult (Zosyn Per Pharmacy*) 1 note FOLLOW UP .ZOSYN PER PHARMACY [facility] Vital Signs - 8 hr 05/21/19 05/21/19 05/22/19 23:49 23:53 03:23 Temperature 99.9 F 98.8 F 98.6 F Pulse Rate 98 99 102 Respiratory 26 18 18 Rate Blood Pressure 110/55 110/51 111/60 (mmHg) O2 Sat by Pulse 94 97 97 Oximetry 05/22/19 05/22/19 05:49 06:56 Temperature Pulse Rate Respiratory 18 18 Rate Blood Pressure (mmHg) O2 Sat by Pulse Oximetry Oxygen Devices in Use Now: None Exam: Patient is lying on a bed with no acute distress HEENT: Normocephalic and atraumatic Lungs: clearr with no added sound. Heart: S1/S2 heard with no murmur ABdomen: Tenderness in epigastric region. Normal bowel sound heard. CVA tenderness on right side. Extremities: No swelling or cyanosis or clubbing Neuro: Alert, oriented and coperative Result Diagrams: 05/22/19 05:24 05/22/19 05:24 Additional Lab and Data: Lab Results 05/21/19 Range/Units 15:52 Urine Color Shani Urine Appearance Cloudy Urine pH 7.0 (5-9) Ur Specific [place] 1.016 (1.010-1.030) Urine Protein Negative (Negative) Urine Ketones Negative (Negative) Urine Blood Negative (Negative) Urine Nitrate Positive A (Negative) Urine Bilirubin Negative (Negative) Urine Urobilinogen Negative (Negative) Ur Leukocyte Esterase 1+ A (Negative) Urine WBC (Auto) 2+(11-20/hpf) A (Absent) Urine RBC (Auto) 2+(6-10/hpf) A (Absent) Ur Squamous Epith Cells Present A (Absent) Urine Bacteria 1+ A (Absent) Urine Glucose Negative (Negative) Assess/Plan/Problems-Billing Assessment: 33 y/o F with ?vesiculoureteral reflux with recurrent UTI and anxiety presented with subacute nausea/vomitng associated with acute fever. FOund to be in sepsis( fever, tachy, leucocytosis) 2/2 pyelonephritis. On zosyn - Patient Problems (1) Sepsis Current Visit: Yes Status: Acute Comment: -On presentation had fever, tachy and leucocytosis -from pyelonephritis -resolved -vitals normal -on maintenance IVF -Blood culture pending (2) Pyelonephritis Current Visit: Yes Status: Acute Code(s): N12 - TUBULO-INTERSTITIAL NEPHRITIS, NOT SPCF ACUTE OR CHRONIC SNOMED Code(s): 56456585 Comment: -gives year long history of right lumbar pain and vomiting -has h/o ?vesicouretral reflux dn frequent UTI-last in 2017 -she recently visited [facility] and was said to have GB abnormalities and was planned for HIDA. -CT shows pyelonephritis; has abnormal urinalysis -USG negative for GB pathology -On zosyn(day 2 on 05/22) -urine culture pending (3) Chronic back pain Current Visit: Yes Status: Acute Code(s): M54.9 - DORSALGIA, UNSPECIFIED; G89.29 - OTHER CHRONIC PAIN SNOMED Code(s): 362655081 Comment: -has history of 3 back surgery and has chronic pain -continue gabapentin (4) Depression Current Visit: Yes Status: Acute Code(s): F32.9 - MAJOR DEPRESSIVE DISORDER , SINGLE EPISODE, UNSPECIFIED SNOMED Code(s): 12102929 Comment: -no active issue -used to take amitryptiline and xanax prn (5) DVT prophylaxis Current Visit: Yes Status: Acute Code(s): Z29.9 - ENCOUNTER FOR PROPHYLACTIC MEASURES, UNSPECIFIED SNOMED Code(s): 378491534 Comment: -on heparin (6) Full code status Current Visit: Yes Status: Acute Code(s): Z78.9 - OTHER SPECIFIED HEALTH STATUS SNOMED Code(s): 797234425 Status and Disposition: Inpatient Attending: Camille Verde Attestation Documenting Resident: Gladys Plaza Supervising Physician: Camille Verde Attending/Supervising Physician Comment: Agree with resident note 33F PMH anxiety and vesiculoureteral reflux formerly mgd with nephrology presented w sepsis 2/2 pyleo (R). Will watch carefully culture data and narrow as able Attestation: This service has been performed in part by a resident under the direction of a teaching physician.I, Camille Verde, performed the service, or was physically present during the critical, or evangelista portions of the service, furnished by the resident. I participated in the management of the patient.
[2019-05-22] MEDS: Acetaminophen TAB* 325 MG PO SCH ×3 (10:49→21:54)
[2019-05-22] MEDS ORDERED: Famotidine TAB* 20 MG PO PRN (15:01)
[2019-05-22] MEDS: tiZANidine TAB* 2 MG PO SCH ×2 (15:42→21:55)
[2019-05-22] MEDS ORDERED: Amitriptyline TAB* 25 MG PO SCH (18:00)
[2019-05-22] MEDS: oxyCODONE/Acetamin 5/325 MG* TAB PO PRN (19:39)
[2019-05-22] MEDS ORDERED: Gabapentin CAP(*) 300 MG PO SCH (21:00)
[2019-05-22] MEDS: Gabapentin CAP(*) 300 MG PO SCH (21:54)
[2019-05-23] MEDS: Acetaminophen TAB* 325 MG PO SCH ×2 (03:24→11:56)
[2019-05-23] MEDS: ZOSYN 3.375 GM Q8H per EXTENDED INFUSION IVPB SCH ×4 (03:24→11:14)
[2019-05-23] MEDS: oxyCODONE/Acetamin 5/325 MG* TAB PO PRN ×2 (03:31→09:31)
[2019-05-23] MEDS: tiZANidine TAB* 2 MG PO SCH (06:30)
[2019-05-23] MEDS: Heparin VIAL(*) 5000 UNITS/ML VIAL (FIVE THOUSAND) SUBCUT SCH (06:32)
--- NOTE | 2019-05-23 06:43 | PN ---
Subjective Date of Service: 05/23/19 Interval History: HD 3 on 05/23 33 y/o F with ?vesiculoureteral reflux with recurrent UTI and anxiety presented with subacute nausea/vomitng associated with acute fever. FOund to be in sepsis( fever, tachy, leucocytosis) 2/2 pyelonephritis. On zosyn Overnight- No acute events; back pain VS stable; feels tired; denies abdominal pain, nausea or vomiting Objective Active Medications: Acetaminophen (Tylenol Tab*) 650 mg PO Q6H [facility] Last Admin: 05/23/19 03:24 Dose: 650 mg Amitriptyline HCl (Elavil Tab*) 25 mg PO QPM [facility] Last Admin: 05/22/19 19:15 Dose: 25 mg Famotidine (Pepcid Tab*) 20 mg PO QPM PRN PRN Reason: HEARTBURN Gabapentin (Neurontin Cap(*)) 300 mg PO TID [facility] Last Admin: 05/22/19 21:54 Dose: 300 mg Heparin Sodium (Porcine) (Heparin Vial(*)) 5,000 units SUBCUT Q8HR [facility] Last Admin: 05/23/19 06:32 Dose: Not Given Piperacillin Sod/Tazobactam (Sod 3.375 gm/ Sodium Chloride) 100 mls @ 25 mls/ hr IVPB Q8H [facility] Last Admin: 05/23/19 03:24 Dose: 25 mls/hr Oxycodone/Acetaminophen (Percocet 5/325 Tab*) 1 tab PO Q6H PRN PRN Reason: PAIN - MODERATE Last Admin: 05/23/19 03:31 Dose: 1 tab Pharmacy Consult (Zosyn Per Pharmacy*) 1 note FOLLOW UP .ZOSYN PER PHARMACY [facility] Tizanidine HCl (Zanaflex Tab*) 2 mg PO Q8HR [facility] Last Admin: 05/23/19 06:30 Dose: 2 mg Vital Signs - 8 hr 05/22/19 05/22/19 05/23/19 22:43 23:39 00:21 Temperature 98.9 F Pulse Rate 74 Respiratory 22 18 18 Rate Blood Pressure 114/72 (mmHg) O2 Sat by Pulse 98 Oximetry 05/23/19 05/23/19 05/23/19 00:22 03:00 03:31 Temperature 98.7 F Pulse Rate 85 Respiratory 18 18 18 Rate Blood Pressure 114/72 (mmHg) O2 Sat by Pulse 100 Oximetry Oxygen Devices in Use Now: None Exam: Patient is lying on a bed with no acute distress HEENT: Normocephalic and atraumatic Lungs: clearr with no added sound. Heart: S1/S2 heard with no murmur ABdomen: Tenderness in epigastric region. Normal bowel sound heard. Extremities: No swelling or cyanosis or clubbing Neuro: Alert, oriented and coperative Result Diagrams: 05/23/19 06:21 05/23/19 06:21 Additional Lab and Data: Lab Results 05/21/19 Range/Units 15:52 Urine Color Shani Urine Appearance Cloudy Urine pH 7.0 (5-9) Ur Specific [place] 1.016 (1.010-1.030) Urine Protein Negative (Negative) Urine Ketones Negative (Negative) Urine Blood Negative (Negative) Urine Nitrate Positive A (Negative) Urine Bilirubin Negative (Negative) Urine Urobilinogen Negative (Negative) Ur Leukocyte Esterase 1+ A (Negative) Urine WBC (Auto) 2+(11-20/hpf) A (Absent) Urine RBC (Auto) 2+(6-10/hpf) A (Absent) Ur Squamous Epith Cells Present A (Absent) Urine Bacteria 1+ A (Absent) Urine Glucose Negative (Negative) Assess/Plan/Problems-Billing Assessment: 33 y/o F with ?vesiculoureteral reflux with recurrent UTI and anxiety presented with subacute nausea/vomitng associated with acute fever. FOund to be in sepsis( fever, tachy, leucocytosis) 2/2 pyelonephritis. On zosyn - Patient Problems (1) Sepsis Current Visit: Yes Status: Acute Comment: -On presentation had fever, tachy and leucocytosis -from pyelonephritis -resolved -vitals normal -on maintenance IVF -Blood culture negative-preliminary (2) Pyelonephritis Current Visit: Yes Status: Acute Code(s): N12 - TUBULO-INTERSTITIAL NEPHRITIS, NOT SPCF ACUTE OR CHRONIC SNOMED Code(s): 57116828 Comment: -gives year long history of right lumbar pain and vomiting -has h/o ?vesicouretral reflux dn frequent UTI-last in 2017 -she recently visited [facility] in [place] and was said to have GB abnormalities and was planned for HIDA. -CT shows pyelonephritis; has abnormal urinalysis -USG negative for GB pathology -On zosyn(day 3 on 05/23) -urine culture positive for E. coli (3) Chronic back pain Current Visit: Yes Status: Acute Code(s): M54.9 - DORSALGIA, UNSPECIFIED; G89.29 - OTHER CHRONIC PAIN SNOMED Code(s): 563520064 Comment: -has history of 3 back surgery and has chronic pain -continue gabapentin (4) Depression Current Visit: Yes Status: Acute Code(s): F32.9 - MAJOR DEPRESSIVE DISORDER , SINGLE EPISODE, UNSPECIFIED SNOMED Code(s): 73472030 Comment: -no active issue -used to take amitryptiline and xanax prn (5) DVT prophylaxis Current Visit: Yes Status: Acute Code(s): Z29.9 - ENCOUNTER FOR PROPHYLACTIC MEASURES, UNSPECIFIED SNOMED Code(s): 067929627 Comment: -on heparin (6) Full code status Current Visit: Yes Status: Acute Code(s): Z78.9 - OTHER SPECIFIED HEALTH STATUS SNOMED Code(s): 409909271 Status and Disposition: Inpatient Attending: Camille Verde Attestation Documenting Resident: Gladys Plaza Supervising Physician: Camille Verde Attestation: This service has been performed in part by a resident under the direction of a teaching physician.I, Camille Verde, performed the service, or was physically present during the critical, or evangelista portions of the service, furnished by the resident. I participated in the management of the patient.
[2019-05-23 06:49] LABS: ABS Basophils 0.2 10^3/ul (0-0.2); ABS Eosinophils 0.3 10^3/ul (0-0.6); ABS Lymphocytes 2.5 10^3/ul (1.0-4.8); ABS Monocytes 1.5 10^3/ul (0-0.8); Eosinophil % 2.1 %; Hematocrit 33 % (35-47); Hemoglobin 11.3 g/dL (12.0-16.0); Lymphocyte % 18.8 %; Mean Corpuscular HGB Conc 34 g/dL (31-36); Mean Corpuscular Hemoglobin 29 pg (27-31); Mean Corpuscular Volume 86 fL (80-97); Mean Platelet Volume 7.7 fL (7.4-10.4); Nucleated Red Blood Cells % 0.1; Platelet Count 436 10^3/uL (150-450); Red Blood Count 3.91 10^6 /uL (3.70-4.87); Red Cell Distribution Width 15 % (10-15); White Blood Count 13.4 10^3/uL (3.5-10.8)
[2019-05-23 07:06] LABS: BUN/Creatinine Ratio 7.8 (8-20); Calcium 8.9 mg/dL (8.6-10.3); EGFR African American 104.5 (>60); EGFR Non-African American 86.3 (>60); Potassium 3.8 mmol/L (3.5-5.0)
[2019-05-23] MEDS: Gabapentin CAP(*) 300 MG PO SCH (08:36)
[2019-05-23] MEDS ORDERED: Polyethylene Glycol 3350* 17 GM PACKET PO SCH (09:00)
[2019-05-23 11:55] VITALS: BP 119/84
--- NOTE | 2019-05-23 14:14 | DS ---
DISCHARGE SUMMARY: DATE OF ADMISSION: 05/21/19 DATE OF DISCHARGE: 05/23/19 PRIMARY CARE PROVIDER: Currently none. The primary care provider is not in our system. The patient is actually searching for a new primary care provider. DISPOSITION AT THE TIME OF DISCHARGE: Stable, discharged to home. PRIMARY DIAGNOSES: 1. Pyelonephritis 2. Sepsis. SECONDARY DIAGNOSES: 1. Vesicoureteral reflux with recurrent urinary tract infection. 2. Anxiety. 3. Chronic nausea and vomiting for the last 1 year, currently undergoing outpatient workup. MEDICATIONS AT TIME OF DISCHARGE: Alprazolam 0.25 mg p.o. daily. Home Medications: 1. Fluticasone 2 sprays nasal both nares daily. 2. Magnesium hydroxide liquid 30 mL p.o. q.6 hours. 3. Ondansetron 4 mg p.o. q.6 hours. 4. Amitriptyline 25 mg p.o. q.p.m. 5. Famotidine 20 mg p.o. q.p.m. 3. Gabapentin 600 mg p.o. t.i.d. 4. Tizanidine 2 mg p.o. q.8 hours p.r.n. 5. Ciprofloxacin 500 mg p.o. b.i.d. for an additional 7 days status post discharge. HISTORY OF PRESENT ILLNESS AND HOSPITAL COURSE: A 33-year-old female with above past history who pre sented to the emergency room on 05/21/19 with right-sided back pain, dysuria, intermittent fevers for several days in the setting of nausea, vomiting, and intermittent stomach pain over the course of 1 year. She has actually been admitted to [facility] in [place] several times prior and thought to hav e gallbladder sludge and was actually awaiting HIDA scan in [place] when the symptoms of her right-s ided flank pain and fevers began. She does have this history of kidney reflux and nephrolithiasis ti mes once in the past. In the emergency room, she was found to be septic with fever, tachycardia, and leukocytosis. Imaging was done, which showed right-sided perinephric stranding with possible right pyelonephritis and hepatomegaly. Urinalysis concerning for infection. Other labs are unremarkable. The patient was admitted to the hospitalist service and her hospital course by problem is as follows . 1. Sepsis. This is most likely secondary to right-sided pyelonephritis. Blood cultures remain nega tive. Her urine cultures came back positive for pansensitive E. coli. She was treated with ceftriax one. She was given a fluid sepsis bolus. Her vital signs improved significantly and sepsis resolved by hospital day 1. 2. Right-sided pyonephritis. The patient was covered with ceftriaxone until cultures came back for pansensitive E. coli. She was discharged on ciprofloxacin for a total of 10 days status post dischar ge and told to follow up with primary care provider she sees in [place], although she is in the proc ess of changing primary care providers. She was voiding freely and did not need Patel during this ho spitalization. 3. Chronic intermittent abdominal nausea and vomiting, this is subacute problem. We talked to her ab out hyperemesis cannabinoid syndrome, which she denies is underlying this. She should be tested for gastroparesis, have a gastric emptying study and HIDA scan as she was following with her outpatient cinthia perkins for this. She had no acute exacerbation of this and her electrolytes remained normal. 4. Anxiety. Her home medications were continued for anxiety and depression.. 5. DVT prophylaxis given with subcu heparin. LABS AND STUDIES DONE DURING THIS HOSPITALIZATION: Gallbladder ultrasound was done on 05/21/19, whic h showed no acute cholelithiasis or cholecystitis and no evidence of sludge or stones. Abdomen and p janet CT was done on 05/21/19 which showed right- sided perinephric stranding concerning for right py elonephritis. LABS ON DAY OF DISCHARGE: White blood count 13.4, hemoglobin is 11.3, hematocrit is 33, platelets 43 6. BMP: Sodium 139, potassium 3.8, chloride 107, carbon dioxide 24, BUN 8, creatinine 0.77, glucose 115. Micro shows E. coli, pansensitive. CONSULTS DURING THIS HOSPITALIZATION: None. PROCEDURES DURING THIS HOSPITALIZATION: None. ITEMS TO FOLLOW UP ON STATUS POST DISCHARGE: 1. Pyelonephritis. The patient should complete 10 day course of ciprofloxacin. She is educated on t his prior to admission. 2. Subacute nausea, vomiting, and abdominal pain. The patient is undergoing outpatient workup. She can continue with this with GI specialty of her choice. 3. Leukocytosis. The patient still has mild leukocytosis of 13 on day of discharge, this is improv ed from 18 on admission, and can be followed up with CBC as outpatient if needed or clinically indica minnie. On day of discharge patient is tolerating diet, ambulating without complications. A physical exam was done and documented in progress note. This discharge summary is a distillation o f a number of events happened over the course of a 3-day hospitalization. If there are any questions about the care of this patient during this hospitalization, please do not hesitate to reach out and contact me directly, my cell phone is [phone]. [id number]/[facility] #: [id number]
== END 2019-05-23 13:55 | disposition home or self-care (01) | DRG 720 ==
LOC: ED 15:14 → MEDTELE 22:08
PROVIDERS: ADMIT Student in an Organized Health Care Education/Training Program; ATTEND Internal Medicine
DX: A41.9 Sepsis, unspecified organism (principal); N12 Tubulo-interstitial nephritis, not specified as acute or chronic; B96.20 Unspecified Escherichia coli [E. coli] as the cause of diseases classified elsewhere; R29.2 Abnormal reflex; F41.9 Anxiety disorder, unspecified; R11.2 Nausea with vomiting, unspecified; G89.29 Other chronic pain; F32.9 Major depressive disorder, single episode, unspecified; Z87.440 Personal history of urinary (tract) infections; Z79.899 Other long term (current) drug therapy; Z84.1 Family history of disorders of kidney and ureter
CPT/HCPCS: 36415; 74176; 76705; 80048; 80076; 81003; 81015; 83605; 83690; 84702; 85025; 87040; 87077; 87086; 87150; 87186; 99285; A9270-GY; J1644; J2270; J2405; J2543